=== PATIENT | female | born 1985 | race Caucasian/White ===

== ENCOUNTER 2023-03-21 15:56 | Observation (INO) ==
--- NOTE | 2023-03-21 16:51 | Emergency Department Note ---
Impression & Plan Fracture, humerus closed, Fall ED Provider Note NAME: TIFFANIE VALERA AGE: 37 SEX: F : 1985 ARRIVES VIA: Ambulance INFORMANT: [Patient][, ] ED PROVIDER(S): [Jerod Lin MD] CHIEF COMPLAINT: Fall, shoulder pain MEDICAL DECISION MAKING: Patient presents due to concern for fall down set of stairs. The patient did h ave a right shoulder x-ray CT head and cervical spine as well as a screening chest x-ray. The patient's blood work showed a normal white count H&H with thrombocytopenia. Kidney function is unremarkable. The patient CT of the head and cervical spine are negative. The patient's right shoulder x-ray does show humerus fracture. The patient was ordered a sling. Chest x-ray is unremarkable. There was concern for subluxation although on exam the patient's shoulder appears to be in place. I did speak with on-call orthopedist Dr. Feldman who recommended a CT of the shoulder which was ordered. Patient CT does not show any evidence of obvious dislocation. After further discussion with the patient as she does require continuous care and that her parents are in their 70s and does require a special lift that goes under her shoulder she does not think that she would be appropriate for home at this time. I did speak with the on-call hospital service Dr. Cardona and the patient was admitted to the medicine service. Definitive Fracture Care note: Dx: R humerus fracture Plan: Immobilization, rest, ice, elevation, analgesia, orthopedic follow up. Prior /Outside records reviewed: [none]. Differential diagnosis: Fracture, dislocation, contusion, intra-abdominal, pneumothorax, intrathoracic, intracranial, neurologic, compartment syndrome, rhabdomyolysis, as well as other pathologies. Diagnostics, as interpreted by me: ECG: [none] Cardiac monitoring: An order was placed for continuous cardiac monitoring. The monitor shows a rate of 77 with sinus rhythm. [Patient was placed on pulse oximetry] Medical decision rules: [none] Imaging studies: See below I informally reviewed the patient's shoulder x-ray which does show humerus fracture. I did informally review the patient's chest x-ray which does not show any obvious pneumothorax. HPI: Patient presents due to concern for a fall down a set of stairs. The patient was reportedly in a motorized wheelchair but is legally blind and does not have good depth perception where this area was not well marked and the patient did fall down the stairs in the motorized wheelchair. PAST MEDICAL HISTORY: [See Below] PAST SURGICAL HISTORY: [See Below] SOCIAL HISTORY: [See Below] HOME MEDICATIONS: [See Below] ALLERGIES: [See Below] VITALS: [See Below] PHYSICAL EXAMINATION: GENERAL: NAD, [wearing a mask,] non-toxic. EYE EXAM: Legally blind, cloudy right cornea. Noted of the right eye. NECK: Supple, no nuchal rigidity, no adenopathy, non-tender. No signs of meningismus. FROM of the neck with good chin to chest and neck extension. No stridor. LUNGS: Clear to auscultation. Normal chest wall mechanics. HEART: NSR, no MRG. ABDOMEN: Abdomen soft, non-tender, no masses, no rebound or guarding. BACK: No CVA TTP. SKIN: No rashes and no bruising. UPPER EXTREMITIES: Pain to the right shoulder with swelling, neurovascular intact distally. LOWER EXTREMITIES: No TTP or deformity. NEURO EXAM: Awake and alert, follows basic commands, normal speech moves all 4 extremities, spasm noted of all extremities. Past Med/Surg History Medical History Blindness Genetic torsion dystonia Neurogenic bladder Surgical History History of corneal transplant Social History Smoking Status: Never smoker Hx Alcohol Use: No Hx Substance Use: No Preferred Language: Pashto Communication Ability: Effective Supervisor Trust Accounts Required: No Beliefs That Will Affect Care: None Current Living Situation: Family Current Living Situation Comment: lives with her mom and dad Feels Safe at Home: Yes Safety Concerns: Feels Safe At This Time Assistive Devices: Wheelchair Allergies Allergies Allergy/AdvReac Type Severity Reaction Status Date / Time erythromycin base Allergy Intermediate facial Verified 03/21/23 22:35 swelling Home Meds Home Medications Medication Instructions Recorded Confirmed cyclobenzaprine 5 mg tablet 5 mg PO HS PRN Muscle Spasm 03/21/23 03/21/23 diazepam 10 mg tablet See Rx Instructions .Route .COMPLEX 03/21/23 03/21/23 dorzolamide 2 % eye drops 1 drp OPR [facility] 03/21/23 03/21/23 ibuprofen 400 mg tablet 400 mg PO BID 03/21/23 03/21/23 nitrofurantoin 100 mg PO BID 03/21/23 03/21/23 monohydrate/macrocrystals 100 mg capsule oxybutynin chloride 5 mg 5 mg PO HS 03/21/23 03/21/23 tablet,extended release 24 hr tizanidine 4 mg tablet 4 mg PO UD PRN Muscle Spasm 03/21/23 03/21/23 Results & Data (ED) Vital Signs Vital Signs - 24 hr 03/21/23 16:06 03/21/23 16:06 03/21/23 16:08 Temperature 36.4 C L 36.4 C L Temperature Source Oral Oral Pulse Rate 82 68 Pulse Rate [Apical] 82 Pulse Rhythm Pulse Rhythm [Apical] Regular Pulse Strength [Apical] Normal Respiratory Rate 19 19 Respiratory Effort / Characteristics Non-Labored Spontaneous Non-Labored Spontaneous Respiratory Depth Normal Normal Respiratory Pattern Blood Pressure 142/104 H Blood Pressure [Left Arm] 142/104 H Blood Pressure Mean 116 Blood Pressure Mean [Left Arm] 116 Blood Pressure Position [Left Arm] Lying Pulse Oximetry 98 98 Oxygen Delivery Method Room Air Room Air Sepsis Recent Fever Within 48 Hours No Sepsis New/Unexplained Change in Mental Status N/A Sepsis Action Taken by Nursing No Action Required 03/21/23 18:59 03/21/23 20:09 03/21/23 21:02 Temperature Temperature Source Pulse Rate 82 94 H Pulse Rate [Apical] 98 H Pulse Rhythm Regular Pulse Rhythm [Apical] Regular Pulse Strength [Apical] Normal Respiratory Rate 17 21 Respiratory Effort / Characteristics Non-Labored Respiratory Depth Normal Respiratory Pattern Regular Blood Pressure Blood Pressure [Left Arm] 126/88 Blood Pressure Mean Blood Pressure Mean [Left Arm] 100 Blood Pressure Position [Left Arm] Lying Pulse Oximetry 98 100 Oxygen Delivery Method Room Air Room Air Sepsis Recent Fever Within 48 Hours Sepsis New/Unexplained Change in Mental Status Sepsis Action Taken by [facility] Medications Current Medication List: was personally reviewed by me Laboratory Data Attestation: I reviewed the patient's lab results. 03/21/23 17:23 03/21/23 17:23 Lab Results 03/21/23 03/21/23 03/21/23 Range/Units 16:05 17:23 17:23 WBC 9.05 (4.8-10.8) K/ul RBC 4.66 (4.20-5.40) M/uL Hgb 13.3 (12.0-16.0) g/dl Hct 39.5 (37.0-47.0) % MCV 84.8 (80.0-100.0) fL MCH 28.5 (25.0-34.0) pg MCHC 33.7 (32.0-36.0) g/dL RDW Std Deviation 41.4 (36.4-46.3) fL RDW Coeff of Nelida 13.4 (11.5-14.5) % Plt Count 79 L (130-400) K/uL MPV 12.3 (9.4-12.4) fL Immature Gran % (Auto) 0.4 % Neut % (Auto) 77.6 % Lymph % (Auto) 14.7 % Henry % (Auto) 5.6 % Eos % (Auto) 1.4 % Baso % (Auto) 0.3 % Neut # (Auto) 7.29 H (1.40-6.50) K/uL Lymph # (Auto) 1.38 (1.2-3.4) K/uL Henry # (Auto) 0.53 (0.11-0.59) K/uL Eos # (Auto) 0.13 (0-0.50) K/uL Baso # (Auto) 0.03 (0-0.2) K/uL Immature Gran # (Auto) 0.04 (0.01-0.20) K/uL Platelet Estimate Normal (Normal) Ovalocytes 1+ Echinocytes 1+ Peripher Smr Path Cons Cancelled Sodium 141 (136-145) mmol/L Potassium 3.8 (3.5-5.1) mmol/L Chloride 110 H (98-107) mmol/L Carbon Dioxide 24 (21-32) mmol/L Anion Gap 7 (3-11) BUN 16 (6-23) mg/dl Creatinine 0.63 (0.6-1.2) mg/dl Est Cr Clr Drug Dosing 113.0 ml/min Est GFR ( Amer) 133.7 ml/min Est GFR (Non-Af Amer) 115.4 ml/min BUN/Creatinine Ratio 25.4 H (10-20) Glucose 87 (70-99(Fasting)) mg/dl Calcium 9.2 (8.6-10.3) mg/dl SARS-CoV-2, RNA, NAAT (NEGATIVE) 03/21/23 Range/Units 22:22 WBC (4.8-10.8) K/ul RBC (4.20-5.40) M/uL Hgb (12.0-16.0) g/dl Hct (37.0-47.0) % MCV (80.0-100.0) fL MCH (25.0-34.0) pg MCHC (32.0-36.0) g/dL RDW Std Deviation (36.4-46.3) fL RDW Coeff of Nelida (11.5-14.5) % Plt Count (130-400) K/uL MPV (9.4-12.4) fL Immature Gran % (Auto) % Neut % (Auto) % Lymph % (Auto) % Henry % (Auto) % Eos % (Auto) % Baso % (Auto) % Neut # (Auto) (1.40-6.50) K/uL Lymph # (Auto) (1.2-3.4) K/uL Henry # (Auto) (0.11-0.59) K/uL Eos # (Auto) (0-0.50) K/uL Baso # (Auto) (0-0.2) K/uL Immature Gran # (Auto) (0.01-0.20) K/uL Platelet Estimate (Normal) Ovalocytes Echinocytes Peripher Smr Path Cons Sodium (136-145) mmol/L Potassium (3.5-5.1) mmol/L Chloride (98-107) mmol/L Carbon Dioxide (21-32) mmol/L Anion Gap (3-11) BUN (6-23) mg/dl Creatinine (0.6-1.2) mg/dl Est Cr Clr Drug Dosing ml/min Est GFR ( Amer) ml/min Est GFR (Non-Af Amer) ml/min BUN/Creatinine Ratio (10-20) Glucose (70-99(Fasting)) mg/dl Calcium (8.6-10.3) mg/dl SARS-CoV-2, RNA, NAAT NEGATIVE (NEGATIVE) Administered Medications Acetaminophen (Acetaminophen 325 Mg Tab) 650 mg PO Q6H PRN PRN Reason: pain Stop: 04/21/23 00:57 Last Admin: 03/22/23 06:33 Dose: 650 mg Documented By: CASIMIRO Diazepam (Diazepam 5 Mg Tablet) 30 mg PO QAM KHANG Stop: 04/21/23 08:59 Last Admin: 03/22/23 09:13 Dose: 30 mg Documented By: DIANE Dorzolamide HCl (Dorzolamide Hcl 2% Oph Soln 10 Ml Btl) 1 drops OPR BID KHANG Stop: 04/21/23 08:59 Last Admin: 03/22/23 09:06 Dose: 1 drops Documented By: DIANE Ibuprofen (Ibuprofen 200 Mg Tab) 400 mg PO BID KHANG Stop: 04/21/23 08:59 Last Admin: 03/22/23 09:06 Dose: 400 mg Documented By: DIANE Nitrofurantoin Macrocrystals (Nitrofurantoin Monohydrate 100 Mg Cap) 100 mg PO BID KHANG Stop: 04/21/23 08:59 Last Admin: 03/22/23 09:07 Dose: 100 mg Documented By: DIANE Discontinued Medications Acetaminophen (Acetaminophen 500 Mg Tab) 1,000 mg PO NOW STA Stop: 03/21/23 17:15 Last Admin: 03/21/23 17:22 Dose: 1,000 mg Documented By: ORI Imaging Data Radiologist's Impression: Chest X-Ray 03/21/23 17:14 SINGLE VIEW CHEST CLINICAL HISTORY: Fall. FINDINGS: An AP, portable, upright chest radiograph is obtained. No prior studies are available for comparison at the time of dictation. An electronic device partially obscures the right lung base. Leads extend into the neck. The cardiomediastinal silhouette is unremarkable. There are low lung volumes. The lungs and pleural spaces are clear. No pneumothorax is seen. There is an i mpacted fracture of the right humeral neck. IMPRESSION: 1. The lungs are clear. 2. Right humeral neck fracture. ACT 112: Negative or not required by law. Electronically signed by: Tato Lozano M.D. 03/22/2023 7:39 AM Shoulder X-Ray 03/21/23 17:14 RIGHT SHOULDER 3 VIEWS CLINICAL HISTORY: Fall. Right shoulder injury. FINDINGS: 3 views of the right shoulder are obtained. No prior studies are avai lable for comparison at the time of dictation. The skeletal structures are well- mineralized. There is an impacted and comminuted fracture of the right humeral head and neck with displaced fragments. Overlying soft tissue edema is noted. No additional fracture is seen. There is no dislocation. Mild productive degenerative change is noted at the acromioclavicular joint. The visualized right lung parenchyma appears clear. An electronic device projects over the right chest. IMPRESSION: Right humeral head/neck fracture as above. Electronically signed by: Tato Lozano M.D. 03/22/2023 7:[address] 03/21/23 17:14 CT cervical spine wo con CLINICAL HISTORY: Trauma TECHNIQUE: Multidetector row helical CT of the cervical spine was performed without administration of intravenous contrast. Coronal and sagittal reform ations were obtained. Automated dose lowering techniques and/or adjustment according to patient size were utilized for this exam. Comparison: None available at the time of this dictation. FINDINGS: No acute fractures or subluxations are identified. Degenerative changes are seen in the visualized spine. The alignment is normal. Soft tissues are unremarkable. IMPRESSION: No evidence of acute bony injury. ACT 112: Negative or not required by law. Electronically signed by: Jadiel Carbajal M.D. 03/21/2023 7:35 PM Chest X-Ray 03/21/23 17:14 SINGLE VIEW CHEST CLINICAL HISTORY: Fall. FINDINGS: An AP, portable, upright chest radiograph is obtained. No prior studies are available for comparison at the time of dictation. An electronic device partially obscures the right lung base. Leads extend into the neck. The cardiomediastinal silhouette is unremarkable. There are low lung volumes. The lungs and pleural spaces are clear. No pneumothorax is seen. There is an impacted fracture of the right humeral neck. IMPRESSION: 1. The lungs are clear. 2. Right humeral neck fracture. ACT 112: Negative or not required by law. Electronically signed by: Tato Lozano M.D. 03/22/2023 7:[address] 03/21/23 17:14 CT head/brain wo con CLINICAL HISTORY: Trauma Technique: Contiguous axial CT images of the head were acquired from the base of the skull to the vertex without intravenous contrast administration. Images were viewed in brain, subdural and bone windows. Automated dose lowering techniques and/or adjustment according to patient size were utilized for this exam. Comparison: None available at the time of this dictation. Findings: The ventricles, basal cisterns, and cerebral sulci are normal. There is no acute intracranial hemorrhage or evidence of acute territorial infarction. Neither mass effect, shift of the midline structures, nor abnormal extra-axial fluid collections are shown. Deep brain stimulator electrodes are noted. Imaged portions of the paranasal sinuses and mastoid air cells are clear. Left prosthetic globe is seen. There are no acute fractures of the calvaria or scalp swelling. Impression: No acute intracranial hemorrhage, no evidence of acute territorial infarction or other acute intracranial disease process. ACT 112: Negative or not required by law. Electronically signed by: Jadiel Carbajal M.D. 03/21/2023 6:35 PM Shoulder X-Ray 03/21/23 17:14 RIGHT SHOULDER 3 VIEWS CLINICAL HISTORY: Fall. Right shoulder injury. FINDINGS: 3 views of the right shoulder are obtained. No prior studies are available for comparison at the time of dictation. The skeletal structures are well-mineralized. There is an impacted and comminuted fracture of the right humeral head and neck with displaced fragments. Overlying soft tissue edema is noted. No additional fracture is seen. There is no dislocation. Mild productive degenerative change is noted at the acromioclavicular joint. The visualized right lung parenchyma appears clear. An electronic device projects over the right chest. IMPRESSION: Right humeral head/neck fracture as above. Electronically signed by: Tato Lozano M.D. 03/22/2023 7:[address] 03/21/23 21:08 Exam(s): CT RIGHT SHOULDER Without Contrast EXAM: CT Right Upper Extremity Without Intravenous Contrast, Shoulder CLINICAL HISTORY: Reason for exam: fractured humerus. TECHNIQUE: Axial computed tomography images of the right shoulder without intravenous contrast. CTDI is 24.58 mGy and DLP is 361.11 mGy-cm. Automated exposure control was utilized for the study. A dose lowering technique was utilized adhering to the principles of ALARA. COMPARISON: No relevant prior studies available. FINDINGS: Bones/joints: Comminuted fracture of the RIGHT humerus surgical neck, which extends into the greater and lesser tuberosities. No dislocation of the glenohumeral joint. Orthopedic surgical evaluation recommended. Intact clavicle, acromion, coracoid process, and glenoid. Soft tissues: Unremarkable. IMPRESSION: Comminuted fracture of the RIGHT humerus surgical neck, which extends into the greater and lesser tuberosities. No dislocation of the glenohumeral joint. Orthopedic surgical evaluation recommended. Electronically signed by: Art Diana MD 03/21/23 22:21 PM Discharge Plan Visit Data Chief Complaint: Fall Stated Complaint: FELL DOWN 12 STEPS IN WHEELCHAIR ED Provider: Jerod Lin Discharge Problem: Fracture, humerus closed, Fall Patient Disposition: Home - Self-Care Condition: Good Discharge Instructions Interventions: ED Discharge Assessment Last Done: 03/22/23 00:28
[2023-03-21] MEDS ORDERED: ACETAMINOPHEN 500 MG TAB PO STA (17:14)
[2023-03-21 18:13] LABS: Hematocrit (blood only) 39.5 % (37.0-47.0); Hemoglobin 13.3 g/dl (12.0-16.0); Mean Corpuscular Hemoglobin 28.5 pg (25.0-34.0); Mean Corpuscular Hgb Conc 33.7 g/dL (32.0-36.0); Mean Corpuscular Volume 84.8 fL (80.0-100.0); RDW Coefficient of Variation 13.4 % (11.5-14.5); RDW Standard Deviation 41.4 fL (36.4-46.3); Red Blood Count 4.66 M/uL (4.20-5.40); White Blood Count 9.05 K/ul (4.8-10.8)
[2023-03-21 18:32] LABS: Basophils # (auto) 0.03 K/uL (0-0.2); Basophils % (auto) 0.3 %; Echinocytes 1+; Eosinophils # (auto) 0.13 K/uL (0-0.50); Eosinophils % (auto) 1.4 %; Immature Granulocytes # (auto) 0.04 K/uL (0.01-0.20); Immature Granulocytes % (auto) 0.4 %; Lymphocytes # (auto) 1.38 K/uL (1.2-3.4); Lymphocytes % (auto) 14.7 %; Mean Platelet Volume 12.3 fL (9.4-12.4); Monocytes # (auto) 0.53 K/uL (0.11-0.59); Monocytes % (auto) 5.6 %; Neutrophils # (auto) 7.29 K/uL (1.40-6.50); Neutrophils % (auto) 77.6 %; Ovalocytes 1+; Platelet Count 79 K/uL (130-400); Platelet Estimate Normal (Normal)
--- NOTE | 2023-03-21 18:37 | CT Scan Report ---
CT head/brain wo con CLINICAL HISTORY: Trauma Technique: Contiguous axial CT images of the head were acquired from the base of the skull to the inder estuardo without intravenous contrast administration. Images were viewed in brain, subdural and bone [facility] . Automated dose lowering techniques and/or adjustment according to patient size were utilized for this exam. Comparison: None available at the time of this dictation. Findings: The ventricles, basal cisterns, and cerebral sulci are normal. There is no acute intracranial hemorrh age or evidence of acute territorial infarction. Neither mass effect, shift of the midline structures , nor abnormal extra-axial fluid collections are shown. Deep brain stimulator electrodes are noted. Imaged portions of the paranasal sinuses and mastoid air cells are clear. Left prosthetic globe is s een. There are no acute fractures of the calvaria or scalp swelling. Impression: No acute intracranial hemorrhage, no evidence of acute territorial infarction or other acute intracra nial disease process. ACT 112: Negative or not required by law. Electronically signed by: Jadiel Carbajal M.D. 03/21/2023 6:35 PM
--- NOTE | 2023-03-21 19:37 | CT Scan Report ---
CT cervical spine wo con CLINICAL HISTORY: Trauma TECHNIQUE: Multidetector row helical CT of the cervical spine was performed without administration of intravenous contrast. Coronal and sagittal reformations were obtained. Automated dose lowering techn iques and/or adjustment according to patient size were utilized for this exam. Comparison: None available at the time of this dictation. FINDINGS: No acute fractures or subluxations are identified. Degenerative changes are seen in the visualized sp ine. The alignment is normal. Soft tissues are unremarkable. IMPRESSION: No evidence of acute bony injury. ACT 112: Negative or not required by law. Electronically signed by: Jadiel Carbajal M.D. 03/21/2023 7:35 PM
--- NOTE | 2023-03-21 22:22 | CT Scan Report ---
Exam(s): CT RIGHT SHOULDER Without Contrast EXAM: CT Right Upper Extremity Without Intravenous Contrast, Shoulder CLINICAL HISTORY: Reason for exam: fractured humerus. TECHNIQUE: Axial computed tomography images of the right shoulder without intravenous contrast. CTDI is 24.58 mGy and DLP is 361.11 mGy-cm. Automated exposure control was utilized for the study. A dose lowering technique was utilized adhering to the principles of ALARA. COMPARISON: No relevant prior studies available. FINDINGS: Bones/joints: Comminuted fracture of the RIGHT humerus surgical neck, which extends into the greater and lesser tuberosities. No dislocation of the glenohumeral joint. Orthopedic surgical evaluation recommended. Intact clavicle, acromion, coracoid process, and glenoid. Soft tissues: Unremarkable. IMPRESSION: Comminuted fracture of the RIGHT humerus surgical neck, which extends into the greater and lesser tuberosities. No dislocation of the glenohumeral joint. Orthopedic surgical evaluation recommended. Electronically signed by: Art Diana MD 03/21/23 22:21 PM
[2023-03-21 22:46] LABS: BUN Creatinine Ratio 25.4 (10-20); Calcium 9.2 mg/dl (8.6-10.3); Est GFR (African American) 133.7 ml/min; Est GFR (Non-African American) 115.4 ml/min; Potassium 3.8 mmol/L (3.5-5.1)
--- NOTE | 2023-03-21 22:51 | History & Physical Report ---
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 Fall -CT right shoulder: Comminuted fracture of the RIGHT humerus surgical neck, which extends into the greater and lesser tuberosities. -CT head neck wnl -admit to med/surg -consult placed to ortho -pain control with tylenol, ibuprofen -PT/OT ordered Thrombocytopenia -platelet 79 -ordered peripheral smear Genetic Torsion Dystonia -Continue PRN tizanidine, cyclobenzaprine, diazepam Neurogenic bladder -continue macrobid, oxybutynin FENa: NPO midnight Code Status: Full DVT PPX: SCDs PT/OT: ordered Case Management: may need to check for motorized wheelchair, possible rehab Dispo: med/surg Roro Millard D.O. 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 She states she was trying to transfer in her wheelchair, does not have depth perception, fell down 6-12 steps, shielded her head with her arms. She notes pain on her right shoulder with palpation, otherwise has chronic muscle spasms from her dystonia. She denies any headache, new weakness, nausea SOB. At this time patient lives with her mom and dad, however they are approaching an age where they may not be able to provide care for her. Allergies Allergy/AdvReac Type Severity Reaction Status Date / Time erythromycin base Allergy Intermediate facial Verified 03/21/23 22:35 swelling Home Medications Medication Instructions Recorded Confirmed Type cyclobenzaprine 5 mg tablet 5 mg PO HS PRN Muscle Spasm 03/21/23 03/21/23 History diazepam 10 mg tablet See Rx Instructions .Route .COMPLEX 03/21/23 03/21/23 History dorzolamide 2 % eye drops 1 drp OPR [facility] 03/21/23 03/21/23 History ibuprofen 400 mg tablet 400 mg PO BID 03/21/23 03/21/23 History nitrofurantoin 100 mg PO BID 03/21/23 03/21/23 History monohydrate/macrocrystals 100 mg capsule oxybutynin chloride 5 mg 5 mg PO HS 03/21/23 03/21/23 History tablet,extended release 24 hr tizanidine 4 mg tablet 4 mg PO UD PRN Muscle Spasm 03/21/23 03/21/23 History Past Med/Surg History Medical History Blindness Genetic torsion dystonia Neurogenic bladder Surgical History History of corneal transplant Social History Smoking Status: Never smoker Hx Alcohol Use: No Hx Substance Use: No Preferred Language: Kinyarwanda Communication Ability: Effective Dental Office Coordinator Required: No Beliefs That Will Affect Care: None Current Living Situation: Family Current Living Situation Comment: lives with her mom and dad Feels Safe at Home: Yes Safety Concerns: Feels Safe At This Time Assistive Devices: Wheelchair Physical Exam Constitutional: + thin, cooperative and comfortable Eyes: Leftward deviation of both eyes, left pupil noted haziness, some tracking noted with right pupil. ENMT: speech clear Respiratory: normal respiratory effort, lungs clear to auscultation Cardiovascular: Rate/Rhythm: regular rate and regular rhythm Chest (Breasts): Additional Comments: deep brain stimulator noted on right chest Gastrointestinal (Abdomen): Percussion/Palpation: abdomen soft; abdomen nontender daiper in place Musculoskeletal: Pain on palpation of right shoulder Skin: no rashes, warm and dry Results & Data Results & Data Vital Signs (Past 12 Hours) Vital Signs Temp Pulse Pulse Resp BP BP Pulse Ox 03/21/23 20:09 94 H 03/21/23 18:59 82 17 98 03/21/23 16:08 68 03/21/23 16:06 36.4 C L 82 19 142/104 H 98 03/21/23 16:06 36.4 C L 82 19 142/104 H 98 O2 Del Method 03/21/23 20:09 03/21/23 18:59 Room Air 03/21/23 16:08 03/21/23 16:06 Room Air 03/21/23 16:06 Room Air Supervising Physician Co-Signing Physician Notes attending addendum: I have physically seen this patient, have supervised the medical residents activities, and agree with the H&P unless as otherwise noted. Assessment and Plan: Proximal right humerus fracture- Admit to med surg Pain control Consult ortho Consult PT/OT Thrombocytopenia- platelets 79 check peripheral smear Genetic Torsion Dystonia- continue usual meds: tizandine, cyclobenzaprine, diazepam Neurogenic Bladder- continue macrobid and oxybutynin Resident Activity Tracking Resident Involvement: Resident Care Provided Care Provided: Adult Hospital Medicine
[2023-03-22] MEDS ORDERED: CYCLOBENZAPRINE HCL 5 MG TAB PO PRN (00:58)
[2023-03-22] MEDS ORDERED: ACETAMINOPHEN 325 MG TAB PO PRN (00:58)
[2023-03-22] MEDS ORDERED: tiZANidine HCL 4 MG TABLET PO PRN (00:58)
[2023-03-22] MEDS ORDERED: diazePAM 5 MG TABLET PO PRN (01:17)
--- NOTE | 2023-03-22 07:04 | Hospitalist Progress Note ---
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 Right Humeral Fracture -CT right shoulder: Comminuted fracture of the RIGHT humerus surgical neck, which extends into the greater and lesser tuberosities. -CT head neck wnl -consult placed to ortho- recommending sling and swath, no movement of shoulder, no weightbearing, no surgery. Will not be able to use arm for several weeks -pain control with Tylenol, ibuprofen -PT/OT ordered Thrombocytopenia -platelet 79; repeat this morning 218. 11/11= 203 -peripheral smear pending - Plan to repeat CBC tomorrow Genetic Torsion Dystonia -Continue PRN tizanidine, cyclobenzaprine, diazepam Neurogenic bladder -continue macrobid, oxybutynin FENa: Regular diet Code Status: Full DVT PPX: SCDs (2) Genetic torsion dystonia: (3) Blindness: (4) Neurogenic bladder: (5) Fracture, humerus closed: Admission and Anticipated Discharge Date Admission Date: March 21, 2023 Supervising Physician Co-Signing Physician Notes i personally examined the patient and verified all greenwood points of history and exam, discussed case, and agree with decision making with Dr Conti Arm pain under control. Notes that she was working to try to get to a TBI facility for quite a while. We discussed disposition out of the hospital, she feels that if we could get her to a TBI that would be ideal, and if not rehab with plan of transitioning to TBI would be reasonable as well. Vitals noted, pleasant no distress, right arm in the sling, occasional myoclonic contractions. Poor vision and diminished motor functionall of which appear chronic humerus fracturesling, pain control, PT/OT, discharge planning. Otherwise as above Subjective Odilia seen at bedside this morning. Having some pain in right arm, but well controlled. Otherwise no complaints. Review of Systems Review of Systems: As per above Physical Exam Physical Exam: Constitutional: well-appearing, no acute distress HEENT: NCAT, no conjunctival injection CV:extremities well-perfused, no LE edema Resp: no increased work of breathing GI: soft, nondistended, nontender, BS normoactive MSK: no gross deformities appreciated; right arm in sling Skin: warm, dry, no rash appreciated Neuro: alert, oriented Results & Data Results & Data Vital Signs (Past 12 Hours) Vital Signs Temp Pulse Pulse Pulse Resp BP BP 03/22/23 00:58 36.6 C 79 18 121/83 03/22/23 00:28 84 18 124/81 03/21/23 21:02 98 H 21 126/88 03/21/23 23:52 96 H 19 113/74 03/21/23 20:09 94 H Pulse Ox O2 Del Method 03/22/23 00:58 100 Room Air 03/22/23 00:28 99 Room Air 03/21/23 21:02 100 Room Air 03/21/23 23:52 98 Room Air 03/21/23 20:09 Resident Activity Tracking Resident Involvement: Resident Care Provided Care Provided: Adult Hospital Medicine
--- NOTE | 2023-03-22 07:40 | XRay Report ---
SINGLE VIEW CHEST CLINICAL HISTORY: Fall. FINDINGS: An AP, portable, upright chest radiograph is obtained. No prior studies are available for c omparison at the time of dictation. An electronic device partially obscures the right lung base. Lead s extend into the neck. The cardiomediastinal silhouette is unremarkable. There are low lung volumes. The lungs and pleural spaces are clear. No pneumothorax is seen. There is an impacted fracture of th e right humeral neck. IMPRESSION: 1. The lungs are clear. 2. Right humeral neck fracture. ACT 112: Negative or not required by law. Electronically signed by: Tato Lozano M.D. 03/22/2023 7:39 AM
--- NOTE | 2023-03-22 07:44 | XRay Report ---
RIGHT SHOULDER 3 VIEWS CLINICAL HISTORY: Fall. Right shoulder injury. FINDINGS: 3 views of the right shoulder are obtained. No prior studies are available for comparison a t the time of dictation. The skeletal structures are well-mineralized. There is an impacted and commi nuted fracture of the right humeral head and neck with displaced fragments. Overlying soft tissue ari ma is noted. No additional fracture is seen. There is no dislocation. Mild productive degenerative ch ethan is noted at the acromioclavicular joint. The visualized right lung parenchyma appears clear. An electronic device projects over the right chest. IMPRESSION: Right humeral head/neck fracture as above. Electronically signed by: Tato Lozano M.D. 03/22/2023 7:42 AM
[2023-03-22] MEDS: DORZOLAMIDE HCL 2% OPH SOLN 10 ML BTL OPR SCH ×2 (09:06→21:15)
[2023-03-22] MEDS: IBUPROFEN 200 MG TAB PO SCH ×2 (09:06→21:14)
[2023-03-22] MEDS: NITROFURANTOIN MONOHYDRATE 100 MG CAP PO SCH ×2 (09:07→21:13)
[2023-03-22] MEDS: diazePAM 5 MG TABLET PO SCH ×2 (09:13→21:12)
[2023-03-22 09:22] LABS: Hematocrit (blood only) 33.5 % (37.0-47.0); Hemoglobin 11.7 g/dl (12.0-16.0); Mean Corpuscular Hemoglobin 28.7 pg (25.0-34.0); Mean Corpuscular Hgb Conc 34.9 g/dL (32.0-36.0); Mean Corpuscular Volume 82.3 fL (80.0-100.0); Platelet Count 218 K/uL (130-400); RDW Coefficient of Variation 13.2 % (11.5-14.5); RDW Standard Deviation 39.5 fL (36.4-46.3); Red Blood Count 4.07 M/uL (4.20-5.40); White Blood Count 6.31 K/ul (4.8-10.8)
[2023-03-22 09:23] LABS: Basophils # (auto) 0.03 K/uL (0-0.2); Basophils % (auto) 0.5 %; Eosinophils # (auto) 0.09 K/uL (0-0.50); Eosinophils % (auto) 1.4 %; Immature Granulocytes # (auto) 0.03 K/uL (0.01-0.20); Immature Granulocytes % (auto) 0.5 %; Lymphocytes # (auto) 1.06 K/uL (1.2-3.4); Lymphocytes % (auto) 16.8 %; Monocytes # (auto) 0.67 K/uL (0.11-0.59); Monocytes % (auto) 10.6 %; Neutrophils # (auto) 4.43 K/uL (1.40-6.50); Neutrophils % (auto) 70.2 %; Platelet Estimate Normal (Normal)
--- NOTE | 2023-03-22 12:09 | Orthopedic Consultation ---
Date of Consultation March 22, 2023 Assessment & Plan (1) Genetic torsion dystonia: (2) Fracture, humerus closed: X-rays and CT scan of the right shoulder are reviewed. There is pseudosubluxation. There is no true dislocation. She has a comminuted impacted but otherwise well aligned fracture of the humeral head and neck. Alignment is satisfactory. Reports reviewed. Recommend sling and swath. No movement of shoulder. No weightbearing. Pain control and icing. PT and OT. Her arm is important for her in terms of her mobility. She will not be able to use this arm for several weeks. Surgery is not required. Diet is ordered. We will monitor. If she is discharged she should follow-up in my office within 7 to 10 days. History of Present Illness Attending Physician: Ad Morgan DO History of Present Illness Zulema is 37. She has genetic torsion dystonia.She fell yesterday injuring her right shoulder. There is no history of prior shoulder problems. She denies other discomfort except for her right hip which she states is chronically arthritic and unchanged compared to previous. I have offered x-ray and she declined. Allergies Allergy/AdvReac Type Severity Reaction Status Date / Time erythromycin base Allergy Intermediate facial Verified 03/21/23 22:35 swelling Home Medications Medication Instructions Recorded Confirmed Type cyclobenzaprine 5 mg tablet 5 mg PO HS PRN Muscle Spasm 03/21/23 03/21/23 History diazepam 10 mg tablet See Rx Instructions .Route .COMPLEX 03/21/23 03/21/23 History dorzolamide 2 % eye drops 1 drp [facility] 03/21/23 03/21/23 History ibuprofen 400 mg tablet 400 mg PO BID 03/21/23 03/21/23 History nitrofurantoin 100 mg PO BID 03/21/23 03/21/23 History monohydrate/macrocrystals 100 mg capsule oxybutynin chloride 5 mg 5 mg PO HS 03/21/23 03/21/23 History tablet,extended release 24 hr tizanidine 4 mg tablet 4 mg PO UD PRN Muscle Spasm 03/21/23 03/21/23 History Patient History Medical History Blindness Genetic torsion dystonia Neurogenic bladder Social History Smoking Status: Never smoker Hx Alcohol Use: No Hx Substance Use: No Preferred Language: Luxembourgish Communication Ability: Effective Wire Winding Machine Tender Required: No Beliefs That Will Affect Care: None Current Living Situation: Family Current Living Situation Comment: lives with her mom and dad Feels Safe at Home: Yes Safety Concerns: Feels Safe At This Time Assistive Devices: Wheelchair Physical Exam Physical Exam: The right shoulder swollen and tender. The scapula clavicle lower arm elbow forearm hand and wrist are nontender. Her sensation is intact throughout the arm. She is unable to move the shoulder. She can flex the elbow 4 out of 5 strength but has only antigravity extension strength. She has 4 out of 5 finger abduction or abduction of thumb and thumb extension strength normal sensation capillary refill less than 2 seconds skin closed and radial pulse 1+ Results & Data Vital Signs (Past 12 Hours) Vital Signs Temp Pulse Pulse Resp BP BP Pulse Ox 03/22/23 07:01 36.7 C 85 16 95/69 L 98 03/22/23 00:58 36.6 C 79 18 121/83 100 03/22/23 00:28 84 18 124/81 99 O2 Del Method 03/22/23 07:01 Room Air 03/22/23 00:58 Room Air 03/22/23 00:28 Room Air
--- NOTE | 2023-03-22 17:32 | Billing Data ---
Date of Service March 22, 2023 Coding Level of Care Code 46727 SUB INP/OBS CARE
--- NOTE | 2023-03-22 19:10 | Billing Data ---
Date of Service March 22, 2023 Coding Level of Care Code 74979 INT INP/OBS CARE
[2023-03-22] MEDS: OXYBUTYNIN CHLORIDE XL 5 MG TABCR PO SCH (21:13)
[2023-03-23 07:09] LABS: Calcium 8.3 mg/dl (8.6-10.3); Creatinine Clr Calc Pharmacy 141.6 ml/min; Est GFR (African American) 144.3 ml/min; Est GFR (Non-African American) 124.5 ml/min; Magnesium 1.7 mg/dl (1.7-2.4); Phosphorus 2.8 mg/dl (2.5-4.9); Potassium 3.5 mmol/L (3.5-5.1)
--- NOTE | 2023-03-23 07:28 | Hospitalist Progress Note ---
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 Right Humeral Fracture -CT right shoulder: Comminuted fracture of the RIGHT humerus surgical neck, which extends into the greater and lesser tuberosities. -CT head neck wnl -consult placed to ortho- recommending sling and swath, no movement of shoulder, no weightbearing, no surgery. Will not be able to use arm for several weeks -pain control with Tylenol, ibuprofen -PT/OT ordered - terminal makeup operator goal is for TBI placement, goal would be direct transfer to TBI but backup up will be rehab to TBI Thrombocytopenia -platelet 79; repeat this morning 218. 11/11= 203 - Platelets clumped this morning, count appears adequate -peripheral smear pending - Plan to repeat CBC tomorrow Genetic Torsion Dystonia -Continue PRN tizanidine, cyclobenzaprine, diazepam Neurogenic bladder -continue macrobid, oxybutynin FENa: Regular diet Code Status: Full DVT PPX: SCDs (2) Genetic torsion dystonia: (3) Blindness: (4) Neurogenic bladder: (5) Fracture, humerus closed: Admission and Anticipated Discharge Date Admission Date: March 21, 2023 Supervising Physician Co-Signing Physician Notes I personally examined the patient and verified all greenwood points of history and exam, discussed case, and agree with decision making with Dr Conti no new complaints. d/w case management re: dispo planning and pt preferences. Vitals noted, pleasant no distress, right arm in the sling, occasional lilia clonic contractions. Poor vision and diminished motor functionall of which appear chronic humerus fracturesling, pain control, PT/OT, discharge planning (TBI vs rehab --> TBI as longer term goal). Otherwise as above Subjective Odilia doing well this morning. No complaints. Pain is well managed. Sling in place. Review of Systems Review of Systems: As per above Physical Exam Physical Exam: Constitutional: well-appearing, no acute distress HEENT: NCAT, no conjunctival injection CV:extremities well-perfused, no LE edema Resp: no increased work of breathing MSK: no gross deformities appreciated; right arm in sling Skin: warm, dry, no rash appreciated Neuro: alert, oriented Results & Data Results & Data Vital Signs (Past 12 Hours) Vital Signs Temp Pulse Resp BP Pulse Ox O2 Del Method 03/22/23 20:53 37.0 C 97 H 16 99/70 L 99 Room Air Resident Activity Tracking Resident Involvement: Resident Care Provided Care Provided: Adult Hospital Medicine (1) Fall Encounter type: initial encounter Qualified Code(s): W19.XXXA - Unspecified fall, initial encounter (5) Fracture, humerus closed Encounter type: initial encounter Fracture morphology: unspecified fracture morphology Humerus Location: proximal Laterality: right Qualified Code(s): S42.201A - Unspecified fracture of upper end of right humerus, initial encounter for closed fracture
[2023-03-23 07:48] LABS: Hematocrit (blood only) 33.7 % (37.0-47.0); Hemoglobin 11.6 g/dl (12.0-16.0); Mean Corpuscular Hgb Conc 34.4 g/dL (32.0-36.0); Mean Corpuscular Volume 84.3 fL (80.0-100.0); RDW Coefficient of Variation 13.2 % (11.5-14.5); RDW Standard Deviation 40.5 fL (36.4-46.3); White Blood Count 6.26 K/ul (4.8-10.8)
[2023-03-23 07:49] LABS: Basophils # (auto) 0.05 K/uL (0-0.2); Basophils % (auto) 0.8 %; Eosinophils # (auto) 0.14 K/uL (0-0.50); Eosinophils % (auto) 2.2 %; Immature Granulocytes # (auto) 0.02 K/uL (0.01-0.20); Immature Granulocytes % (auto) 0.3 %; Lymphocytes # (auto) 2.06 K/uL (1.2-3.4); Lymphocytes % (auto) 32.9 %; Monocytes % (auto) 12.8 %; Neutrophils # (auto) 3.19 K/uL (1.40-6.50)
[2023-03-23] MEDS: NITROFURANTOIN MONOHYDRATE 100 MG CAP PO SCH ×2 (09:05→20:32)
[2023-03-23] MEDS: IBUPROFEN 200 MG TAB PO SCH ×2 (09:05→20:32)
[2023-03-23] MEDS: DORZOLAMIDE HCL 2% OPH SOLN 10 ML BTL OPR SCH ×2 (09:07→20:31)
[2023-03-23] MEDS: diazePAM 5 MG TABLET PO SCH ×2 (09:07→20:32)
--- NOTE | 2023-03-23 10:51 | Orthopedic Progress Note ---
Date of Service March 23, 2023 Assessment & Plan (1) Genetic torsion dystonia: (2) Fracture, humerus closed: Plan: Comminuted, impacted right proximal humerus fracture - alignment acceptable. Continue sling and swath - needs band around abdomen. one not found in room. Nursing states they will get from another sling and put around abdomen. Sling and swathe on at all times. No ROM or weight bearing thru right shoulder Pain medication as needed for pain control Ice to right shoulder As needed for pain and swelling. Continue conservative treatment. Discussed vitamin D supplementation. Patient requested no supplements as this aggravates her dystonia. She would like to increase vitamin D in her diet. Discussed additional dairy intake. We will discuss different forms of vitamin D intake with Dr. Feldman. Follow-up in [address] Feldman. We will continue to follow. Admission and Anticipated Discharge Date Admission Date: March 21, 2023 Subjective Assisted patient into getting in to bed with nursing assistance. No severe pain in right shoulder. Sling in place, abdomen strap not in place and not found in room. Physical Exam Musculoskeletal: Sling in place right arm. full ROM of right hand. No distal edema. Nontender with palpation of right hand, wrist, forearm. No ROM attempted right shoulder. Results & Data Vital Signs (Past 12 Hours) Vital Signs Temp Pulse Resp BP Pulse Ox O2 Del Method 03/23/23 07:36 36.4 C L 82 16 111/74 100 Room Air Laboratory Results Vitamin D level 10.7 (2) Fracture, humerus closed Encounter type: initial encounter Fracture morphology: unspecified fracture morphology Humerus Location: proximal Laterality: right Qualified Code(s): S42.201A - Unspecified fracture of upper end of right humerus, initial encounter for closed fracture
--- NOTE | 2023-03-23 11:21 | Billing Data ---
Date of Service March 23, 2023 Coding Level of Care Code 42778 SUB INP/OBS CARE
[2023-03-23] MEDS ORDERED: ERGOCALCIFEROL 50,000 UNITS 1250 MCG CAP PO SCH (11:30)
[2023-03-23] MEDS: OXYBUTYNIN CHLORIDE XL 5 MG TABCR PO SCH (20:32)
[2023-03-24 06:29] LABS: Calcium 8.2 mg/dl (8.6-10.3); Creatinine Clr Calc Pharmacy 141.6 ml/min; Est GFR (African American) 144.3 ml/min; Est GFR (Non-African American) 124.5 ml/min; Magnesium 1.7 mg/dl (1.7-2.4); Phosphorus 3.2 mg/dl (2.5-4.9); Potassium 3.7 mmol/L (3.5-5.1)
[2023-03-24 07:40] LABS: Hematocrit (blood only) 30.7 % (37.0-47.0); Hemoglobin 10.6 g/dl (12.0-16.0); Mean Corpuscular Hemoglobin 28.9 pg (25.0-34.0); Mean Corpuscular Hgb Conc 34.5 g/dL (32.0-36.0); Mean Corpuscular Volume 83.7 fL (80.0-100.0); RDW Coefficient of Variation 13.2 % (11.5-14.5); RDW Standard Deviation 40.5 fL (36.4-46.3); Red Blood Count 3.67 M/uL (4.20-5.40); White Blood Count 4.59 K/ul (4.8-10.8)
[2023-03-24 07:42] LABS: Basophils # (auto) 0.04 K/uL (0-0.2); Basophils % (auto) 0.9 %; Eosinophils # (auto) 0.16 K/uL (0-0.50); Eosinophils % (auto) 3.5 %; Lymphocytes # (auto) 1.68 K/uL (1.2-3.4); Lymphocytes % (auto) 36.6 %; Monocytes # (auto) 0.56 K/uL (0.11-0.59); Monocytes % (auto) 12.2 %; Neutrophils # (auto) 2.15 K/uL (1.40-6.50); Neutrophils % (auto) 46.8 %
--- NOTE | 2023-03-24 07:45 | Hospitalist Progress Note ---
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 Right Humeral Fracture -CT right shoulder: Comminuted fracture of the RIGHT humerus surgical neck, which extends into the greater and lesser tuberosities. -CT head neck wnl -consult placed to ortho- recommending sling and swath, no movement of shoulder, no weightbearing, no surgery. 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 Was eating breakfast. Pain is well controlled. Review of Systems Review of Systems: As per above Physical Exam Physical Exam: Constitutional: well-appearing, no acute distress HEENT: NCAT, no conjunctival injection CV:extremities well-perfused, no LE edema Resp: no increased work of breathing MSK: no gross deformities appreciated; right arm in sling Skin: warm, dry, no rash appreciated Neuro: alert, oriented Results & Data Results & Data Vital Signs (Past 12 Hours) Vital Signs Temp Pulse Resp BP Pulse Ox O2 Del Method 03/24/23 07:21 36.7 C 114 H 16 119/85 97 Room Air 03/23/23 21:43 37.2 C 114 H 18 114/76 97 Room Air Resident Activity Tracking Resident Involvement: Resident Care Provided Care Provided: Adult Hospital Medicine (1) Fall Encounter type: initial encounter Qualified Code(s): W19.XXXA - Unspecified fall, initial encounter (5) Fracture, humerus closed Encounter type: initial encounter Fracture morphology: unspecified fracture morphology Humerus Location: proximal Laterality: right Qualified Code(s): S42.201A - Unspecified fracture of upper end of right humerus, initial encounter for closed fracture
--- NOTE | 2023-03-24 08:05 | Orthopedic Progress Note ---
Date of Service March 24, 2023 Assessment & Plan (1) Fracture, humerus closed: Plan: The patient was educated regarding today's findings. Conservative care measures were discussed. Her belly band was tightened. Her sling position was adjusted for better support. Continue with no active shoulder motion. She may do active wrist and elbow motion. She will be seen by Dr. Feldman later today when he is finished in the operating room. Her pain is currently well controlled. Continue with oral medication as needed. Follow-up in the office once discharged. Admission and Anticipated Discharge Date Admission Date: March 23, 2023 Subjective This 37-year-old female is seen today in her room. She denies any shoulder complaints at this time. She states her right hip hurts more than her right shoulder. She has known DJD in her right hip. She denies any numbness or tingling. No other complaints. No new areas of discomfort. Review of Systems Review of Systems: Unchanged from yesterday. Physical Exam Physical Exam: General: Well-developed, well-nourished, young female, in no acute distress. Laying in bed. Alert and oriented. Her sling is somewhat disheveled and has slid posteriorly. Belly band is loose. Skin: Warm and dry with fair turgor. No rashes. No ecchymosis or erythema. Musculoskeletal: The patient has intact motor function of her right digits, wrist, and elbow. Shoulder motion was not attempted due to the known fracture. She has mild discomfort with palpation over the proximal humerus. No pain with palpation over the clavicle or scapula. She has no pain with palpation over the forearm, wrist, or hand. Neurologic: Gross sensation is intact across the dermatomes of the right arm by soft touch. Peripheral pulses are 2+. She has intact pinch [facility], abduction of the fingers, as well as sensation across the radial, median, and ulnar nerve distributions. Peripheral pulses are 2+. Results & Data Vital Signs (Past 12 Hours) Vital Signs Temp Pulse Resp BP Pulse Ox O2 Del Method 03/24/23 07:21 36.7 C 114 H 16 119/85 97 Room Air 03/23/23 21:43 37.2 C 114 H 18 114/76 97 Room Air Laboratory Results CBC obtained today shows a white count of 4.59. H&H of 10.6 and 30.7. Normal platelets. Renal panel is unremarkable. Creatinine is slightly low at 0.5. Glucose is normal. Phosphorus and magnesium are also normal. (1) Fracture, humerus closed Encounter type: initial encounter Fracture morphology: unspecified fracture morphology Humerus Location: proximal Laterality: right Qualified Code(s): S42.201A - Unspecified fracture of upper end of right humerus, initial encounter for closed fracture
[2023-03-24 08:31] LABS: Platelet Count 171 K/uL (130-400)
[2023-03-24] MEDS ORDERED: CHOLECALCIFEROL 1,000 UNITS 25 MCG TAB PO SCH (09:00)
[2023-03-24] MEDS: DORZOLAMIDE HCL 2% OPH SOLN 10 ML BTL OPR SCH (09:35)
[2023-03-24] MEDS: NITROFURANTOIN MONOHYDRATE 100 MG CAP PO SCH (09:35)
[2023-03-24] MEDS: IBUPROFEN 200 MG TAB PO SCH (10:23)
[2023-03-24] MEDS: diazePAM 5 MG TABLET PO SCH (10:23)
--- NOTE | 2023-03-24 14:27 | Discharge Summary ---
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 She states she was trying to transfer in her wheelchair, does not have depth perception, fell down 6-12 steps, shielded her head with her arms. She notes pain on her right shoulder with palpation, otherwise has chronic muscle spasms from her dystonia. She denies any headache, new weakness, nausea SOB. At this time patient lives with her mom and dad, however they are approaching an age where they may not be able to provide care for her. Principal Diagnosis Humerus Fracture Discharge Exam Constitutional: well-appearing, no acute distress HEENT: NCAT, no conjunctival injection CV:extremities well-perfused, no LE edema Resp: no increased work of breathing MSK: no gross deformities appreciated; right arm in sling Skin: warm, dry, no rash appreciated Neuro: alert, oriented Discharge Data Allergies Allergy/AdvReac Type Severity Reaction Status Date / Time erythromycin base Allergy Intermediate facial Verified 03/21/23 22:35 swelling Consultations 03/21/23 22:15 ED Decision to Admit Stat 03/22/23 00:58 Consult Orthopedic Surgery Routine Ordered Studies 03/21/23 17:14 CT cervical spine wo con Stat CT head/brain wo con Stat 03/21/23 21:08 CT shoulder RT wo con Stat Hospital Course (1) Fall: 37yo Female with 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 Right Humeral Fracture -CT right shoulder:Comminuted fracture of the RIGHT humerus surgical neck, w hich extends into the greater and lesser tuberosities. -Instructions per orthopedics - No range of motion right shoulder. -Sling and swath on at all times. May remove for bathing purposes. Do not move arm when sling is off. Reapply directly after bathing. -Nonweightbearing right upper extremity. -Ice to right shoulder as needed for pain and swelling. -May not use right arm for transfers at this time. -Vitamin D deficiency-continue supplementation as instructed. - Follow-up with Dr. Feldman in 7 to 10 days as scheduled. Vitamin D Def - Vitamin D= 10.7 - States that supplementation makes spams worse - Recommend 15-20 minutes a day in the sun Thrombocytopenia -platelet 79; repeat 281, 171 -initial lab likely lab error Genetic Torsion Dystonia -Continue PRN tizanidine, cyclobenzaprine, diazepam Neurogenic bladder -continue macrobid, oxybutynin (2) Genetic torsion dystonia: (3) Blindness: (4) Neurogenic bladder: (5) Fracture, humerus closed: Total Time Total Time Spent Total Time Spent (In Minutes): <30 Discharge Plan Discharge Items Patient Disposition: Transfer Inpatient Rehab Fac Reason For Visit: RIGHT ARM FRACTURE Discharge Diagnosis: Right arm fracture Condition on Discharge: Good Activity: Per Instructions section Non-emergency contact: Primary Care Provider Call non-emergency contact if: you have any medication questions and your symptoms worsen Follow-up/Referrals: Jacob Feldman MD [Surgeon] - 04/01/23 12:00 pm Danica White D.O. 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 Right Humeral Fracture -CT right shoulder:Comminuted fracture of the RIGHT humerus surgical neck, which extends into the greater and lesser tuberosities. -instructions as per below Vitamin D Def - Vitamin D= 10.7 - States that supplementation makes spams worse - Recommend 15-20 minutes a day in the sun Thrombocytopenia -platelet 79; repeat 281, 171 -initial lab likely lab error Genetic Torsion Dystonia -Continue PRN tizanidine, cyclobenzaprine, diazepam Neurogenic bladder -continue macrobid, oxybutynin Addtl [employer] Provider Instructions: No range of motion right shoulder. Sling and swath on at all times. May remove for bathing purposes. Do not move arm when sling is off. Reapply directly after bathing. Nonweightbearing right upper extremity. Ice to right shoulder as needed for pain and swelling. May not use right arm for transfers at this time. Vitamin D deficiency-continue supplementation as instructed. Follow-up with Dr. Feldman in 7 to 10 days as scheduled. Please call [phone] with any needs to reschedule appointment or any questions. Stand-Alone Forms: [facility] Patient informed of condition?: Yes DNR: No Discharge Level of Care: Acute rehab Communicable Disease: No Discharge Prognosis: Improving Lines: None Urinary Catheter: No Medications and DC Order Prescriptions: Continued dorzolamide 2 % drops 1 drp [facility] cyclobenzaprine 5 mg tablet 5 mg PO HS PRN (Reason: Muscle Spasm) nitrofurantoin monohyd/m-cryst 100 mg capsule 100 mg PO BID tizanidine 4 mg tablet 4 mg PO UD PRN (Reason: Muscle Spasm) oxybutynin chloride 5 mg tablet extended release 24hr 5 mg PO HS ibuprofen 400 mg Tablet 400 mg PO BID diazepam 10 mg tablet See Rx Instructions .ROUTE .COMPLEX Rx Instructions: 30 mg orally every morning, 25 mg in the evening, may take an additional tablet as needed for muscle spasm Discharge Orders: Discharge Order (Routine); Ordered 03/24/23 Ordered By: Gricelda Conti Admission Data Admit Date/Time: 03/23/23 17:21 Attending Provider: Ad Morgan Admit Provider: Gricelda Conti Primary Care Provider: Danica White Other Providers: Manuel Tamez ; Jacob Feldman ; [facility] Other Interventions: Discharge Summary Assessment (RN) Last Done: 03/24/23 14:50 Supervising Physician Co-Signing Physician Notes I personally examined the patient and verified all [place] points of history and exam, discussed case, and agree with decision making with Dr Conti no new complaints. for rehab today. Vitals noted, pleasant no distress, right arm in the sling, occasional myoclonic contractions. Poor vision and diminished motor functionall of which appear chronic humerus fracturesling, pain control, PT/OT, discharge planning (TBI vs rehab --> TBI as longer term goal). Otherwise as above. sunlight exposure for vitamin D would be reasonable since she can't tolerate supplements due to spasms/etc Resident Activity Tracking Resident Involvement: Resident Care Provided Care Provided: Adult Hospital Medicine
--- NOTE | 2023-03-24 18:58 | Billing Data ---
Date of Service March 24, 2023 Coding Level of Care Code 61102 IN/OBS DISCH 30 MIN/LESS
== END 2023-03-24 18:06 | DRG 563 ==
LOC: ED 15:56 → 3E 15:56 → SUATTDRO 23:06 → 3E 03-22 00:28